=== PATIENT | female | born 1970 | race Caucasian/White ===

== ENCOUNTER 2025-06-04 08:49 | Outpatient (CLI) | payer MEDICARE, SELFPAY ==
--- NOTE | 2025-06-04 09:15 | CRLHL7_ITS ---
For Patients: As a result of the Century Cures Act, medical imaging exams and procedure reports are released immediately into your electronic medical record. You may view this report before your referring provider. If you have questions, please contact your health care provider. INDICATION: Aphasia due to close TBI TECHNIQUE: Modified barium swallow. Fluoroscopic time 1 minute 58 seconds. COMPARISON: None FINDINGS/IMPRESSION: Spontaneous aspiration occurred with the 2nd swallow with slightly thickened barium and pudding thick barium. Cough reflex occurred following the swallow. No obstruction to the flow of barium. Dictated by Joshua Sanchez MD @ 06/04/2025 11:08:42 AM (Electronically Signed)
== END 2025-06-04 08:50 | disposition home or self-care (01) ==
PROVIDERS: PCP Nurse Practitioner Family; Visit Provider Nurse Practitioner Family
DX: R13.12 Dysphagia, oropharyngeal phase (principal); T17.228A Food in pharynx causing other injury, initial encounter; S09.8XXA Other specified injuries of head, initial encounter
CPT/HCPCS: 74230; 92611